=== PATIENT | male | born 1970 | race Caucasian/White ===

== ENCOUNTER 2018-08-01 18:35 | Emergency (ER) | payer OTHER ==
[~2018-08-01] VITALS: Ht 180.3 cm; Wt 86.2 kg
[2018-08-01] MEDS ORDERED: SODIUM CHLORIDE 0.9% 1000ML 1,000 ML IV ONE (19:45)
== END 2018-08-01 20:20 | disposition home or self-care (01) ==
LOC: FSED 18:35
DX: R07.89 Other chest pain (principal); R00.2 Palpitations; E86.0 Dehydration
CPT/HCPCS: 80053; 82553; 84484; 85025; 93005; 99283; J7030

== ENCOUNTER → 2021-07-07 | Outpatient (CLI) | payer OTHER | LOC: RAD 13:08 | PROVIDERS: ATTEND Family Medicine | DX: R05.9 Cough, unspecified (principal); Z86.16 Personal history of COVID-19 | CPT/HCPCS: 71046 ==